=== PATIENT | male | born 1960 | race Caucasian/White ===

== ENCOUNTER 2018-11-27 17:09 | Emergency (ER) | payer OTHER ==
[~2018-11-27] VITALS: Ht 180.3 cm; Wt 90.8 kg
[2018-11-27 17:29] VITALS: Ht 180.3 cm; Wt 90.8 kg
--- NOTE | 2018-11-27 18:05 | EN ---
Date/Time of Note Date/Time of Note DATE: 11/27/18 TIME: 18:05 ER Progress Note 58-year-old male history of alcoholism presents for tremors. He has been drinking heavily for the past 5 days. Medical screening exam initiated and lab/imaging tests ordered. Patient will be seen by another provider. SUNNY MILES DO Nov 27, 2018 18:05
--- NOTE | 2018-11-27 19:39 | ERD ---
ER Documentation Chief Complaint Chief Complaint DRINKING FOR 5 DAYS, C/O N/V AND SHAKY HPI Patient is a 58-year-old male with hypertension and alcohol abuse who presents with alcohol intoxication. The patient went to his primary doctor and was told to go to the emergency department. He admits to drinking tequila today. He has no other complaints. Upon review of old medical records this is the patient's first visit to the emergency department. He does not know the name of his doctor. ROS All systems reviewed and are negative except as per history of present illness. PMhx/Soc Medical and Surgical Hx: pt denies Medical Hx, pt denies Surgical Hx Hx Alcohol Use: No Hx Substance Use: No Hx Tobacco Use: No Smoking Status: Never smoker FmHx Family History: No diabetes Physical Exam Vitals Vital Signs Date Temp Pulse Resp B/P (MAP) Pulse Ox O2 O2 Flow FiO2 Time Delivery Rate 11/27/18 97.8 89 18 148/80 96 Room Air 19:14 (102) 11/27/18 97.8 120 18 162/93 94 17:29 (116) Physical Exam Const: No acute distress Head: Atraumatic Eyes: Normal Conjunctiva ENT: Normal External Ears, Nose and Mouth. Neck: Full range of motion. No meningismus. Resp: Clear to auscultation bilaterally Cardio: Tachycardic rate with a regular rhythm Abd: Soft, non tender, non distended. Normal bowel sounds Skin: No petechiae or rashes Back: No midline or flank tenderness Ext: No cyanosis, or edema Neur: Awake and alert Psych: Normal Mood and Affect Result Diagram: 11/27/18181311/27/181813 Results 24 hrs Laboratory Tests Test 11/27/18 18:14 11/27/18 18:16 White Blood Count 8.1 10^3/ul Red Blood Count 4.98 10^6/ul Hemoglobin 15.3 g/dl Hematocrit 45.8 % Mean Corpuscular Volume 92.0 fl Mean Corpuscular Hemoglobin 30.7 pg Mean Corpuscular Hemoglobin Concent 33.4 g/dl Red Cell Distribution Width 12.4 % Platelet Count 243 10^3/UL Mean Platelet Volume 9.3 fl Immature Granulocytes % 0.600 % Neutrophils % 53.1 % Lymphocytes % 35.6 % Monocytes % 8.6 % Eosinophils % 1.2 % Basophils % 0.9 % Nucleated Red Blood Cells % 0.0 /100WBC Immature Granulocytes # 0.050 10^3/ul Neutrophils # 4.3 10^3/ul Lymphocytes # 2.9 10^3/ul Monocytes # 0.7 10^3/ul Eosinophils # 0.1 10^3/ul Basophils # 0.1 10^3/ul Nucleated Red Blood Cells # 0.0 10^3/ul Prothrombin Time 12.0 Sec Prothrombin Time Ratio 0.9 INR International Normalized Ratio 0.88 Activated Partial Thromboplast Time 32.3 Sec Sodium Level 142 mmol/L Potassium Level 4.9 mmol/L Chloride Level 106 mmol/L Carbon Dioxide Level 23 mmol/L Anion Gap 13 Blood Urea Nitrogen 15 mg/dl Creatinine 0.89 mg/dl Est Glomerular Filtrat Rate mL/min > 60 mL/min Glucose Level 106 mg/dl Calcium Level 9.5 mg/dl Total Bilirubin 0.5 mg/dl Direct Bilirubin 0.00 mg/dl Indirect Bilirubin 0.5 mg/dl Aspartate Amino Transf (AST/SGOT) 28 IU/L Alanine Aminotransferase (ALT/SGPT) 18 IU/L Alkaline Phosphatase 74 IU/L Total Protein 7.8 g/dl Albumin 4.4 g/dl Globulin 3.40 g/dl Albumin/Globulin Ratio 1.29 Salicylates Level < 1.0 mg/dl Acetaminophen Level < 10.0 ug/ml Ethyl Alcohol Level 233.0 mg/dl Urine Color YELLOW Urine Clarity CLEAR Urine pH 5.0 Urine Specific Aiken 1.011 Urine Ketones NEGATIVE mg/dL Urine Nitrite NEGATIVE mg/dL Urine Bilirubin NEGATIVE mg/dL Urine Urobilinogen NEGATIVE mg/dL Urine Leukocyte Esterase NEGATIVE Lelia/ul Urine Microscopic RBC 0 /HPF Urine Microscopic WBC 1 /HPF Urine Hemoglobin 1+ mg/dL Urine Glucose NEGATIVE mg/dL Urine Total Protein NEGATIVE mg/dl Urine Opiates Screen Negative Urine Barbiturates Negative Urine Amphetamines Screen Negative Urine Benzodiazepines Screen Negative Urine Cocaine Screen Negative Urine Cannabinoids Negative Procedures/MDM EKG read by me: Rate/Rhythm: Tachycardia at a rate of 104 Intervals: Normal Impression: Sinus tachycardia without ischemia Patient is a 58-year-old male who presents with alcohol intoxication. His uncle level was found to be greater than 200. Other laboratory studies are normal. I doubt alcohol withdrawal or acute delirium tremens at this time. I believe outpatient management is appropriate. The patient will need alcohol detox and I provided him with a list of outpatient resources. The patient can return for any worsening symptoms. Departure Diagnosis: Primary Impression: Alcoholic intoxication Complication of substance-induced condition: uncomplicated Qualified Codes: F10.920 - Alcohol use, unspecified with intoxication, uncomplicated Condition: Fair Patient Instructions: Alcohol Intoxication Referrals: Your doctor Additional Instructions: Call your primary care doctor TOMORROW for an appointment during the next 1 WEEK.Tell the law secretary that you were referred from this facility.See the doctor sooner or return here if your condition worsens before your appointment time. TASHA BARAJAS MD Nov 27, 2018 19:39
[2018-11-27 20:25] VITALS: BP 144/81; PULSE 88; RESP 19
== END 2018-11-27 20:25 | disposition home or self-care (01) ==
LOC: E/R 17:09
DX: F10.920 Alcohol use, unspecified with intoxication, uncomplicated (principal); I10 Essential (primary) hypertension
CPT/HCPCS: 80053; 80307; 81001; 85025; 85610; 85730